=== PATIENT | male | born 1945 | race Caucasian/White ===

== ENCOUNTER → 2021-05-21 | Outpatient (CLI) | payer MEDICARE ==
[~2021-05-21] MED LIST: CARV-39 PO; CARV6.2512 PO; CEPH-368 PO; DIGO250T3 PO; DOXY100T PO; FURO40TA6 PO; HYDR-3590 PO; LISI5TAB7 PO; POTA20TA6 PO; SPIR25TA PO; THYR30TA PO; THYR60TA PO; WARF-36 PO; WARF10TA43 PO
== END | disposition home or self-care (01) ==
LOC: CVU 07:39
PROVIDERS: ATTEND Internal Medicine Cardiovascular Disease
DX: Z01.810 Encounter for preprocedural cardiovascular examination (principal); I11.9 Hypertensive heart disease without heart failure; E78.5 Hyperlipidemia, unspecified; I08.8 Other rheumatic multiple valve diseases; Z95.0 Presence of cardiac pacemaker
CPT/HCPCS: 93306